=== PATIENT | male | born 1955 | race Caucasian/White ===

== ENCOUNTER 2016-04-11 09:32 | Outpatient (CLI) | payer OTHER | END 2016-04-11 09:33 | disposition home or self-care (01) | DX: E11.9 Type 2 diabetes mellitus without complications (principal) ==

== ENCOUNTER 2016-05-09 09:44 | Outpatient (CLI) | payer OTHER | END 2016-05-09 09:45 | disposition home or self-care (01) | DX: E11.9 Type 2 diabetes mellitus without complications (principal); E80.6 Other disorders of bilirubin metabolism ==

== ENCOUNTER 2016-07-31 07:16 | Outpatient (CLI) | payer OTHER ==
[2016-07-31 12:00] LABS: HEMOGLOBIN A1C 0.82 g/dL
[2016-07-31 12:09] LABS: BILIRUBIN,TOTAL 2.5 mg/dL (0.2-1.0); BUN - BLOOD UREA NITROGEN 17 mg/dL (6-20); CALCIUM 8.7 mg/dL (8.5-10.3); CARBON DIOXIDE - CO2 20 mmol/L (21-32); CHLORIDE 111 mmol/L (101-111); CHOL/HDL RATIO 4.9 (<5.0); CHOLESTEROL 209 mg/dL; CREATININE 0.7 mg/dL (0.6-1.2); GFR - MDRD 115 (>89); GLUCOSE 162 mg/dL (70-100); HDL CHOLESTEROL 43 mg/dL; LDL/HDL RATIO 3.3 (<3.6); POTASSIUM 3.9 mmol/L (3.5-5.0); SODIUM 139 mmol/L (135-145); TOTAL PROTEIN 6.8 g/dL (6.7-8.2); TRIGLYCERIDES 109 mg/dL; VLDL CHOLESTEROL 22 mg/dL
== END 2016-07-31 07:17 | disposition home or self-care (01) ==
LOC: LAB.F 07:16
PROVIDERS: ATTEND Nurse Practitioner Family
DX: E11.9 Type 2 diabetes mellitus without complications (principal)
CPT/HCPCS: 36415; 80053; 80061; 83036

== ENCOUNTER 2016-08-23 08:00 | Outpatient (CLI) | payer OTHER | END 2016-08-23 23:59 | disposition home or self-care (01) | LOC: LAB.R 08:00 | PROVIDERS: ATTEND Nurse Practitioner Family | DX: R31.9 Hematuria, unspecified (principal) | CPT/HCPCS: 87086 ==

== ENCOUNTER 2016-08-29 09:22 | Outpatient (CLI) | payer OTHER ==
--- NOTE | 2016-08-30 08:57 | XRAY Report ---
ONE-VIEW ABDOMEN: 08/29/2016 CLINICAL HISTORY: Patient has history of a calculus in his kidney. COMPARISON: 07/12/2015 FINDINGS: A 1.2 cm calculus is noted in the lower pole calyx of the left kidney. The size of the ca lculus is very similar to its size on preceding exam dated 07/12/2015. Its shape appears slightly di fferent and its density appears intact. Right kidney once again demonstrates multiple small calculi in the lower pole of the right kidney. There are between ten to twelve small calculi measuring 0.1 c m each in diameter. The number of these calculi appear to be slightly increased as compared to prece ding exam. Multiple gallbladder calculi are also noted in the right upper quadrant of the abdomen. There are nu merous calculi within the gallbladder, most of which measure 0.7 cm in diameter. Spurring is noted in the lumbar spine at multiple levels. Also, some spurring is seen in the lower t horacic spine. Multiple phleboliths calcifications are noted in the pelvic soft tissues. IMPRESSION: 1. A 1.2 CM CALCULUS IS NOTED IN THE LOWER POLE CALYX LEFT KIDNEY. THE SIZE OF THE CALCULUS IS JACQUELINE LAR TO ITS SIZE ON PRECEDING EXAM DATED 07/12/2015. ITS SHAPE IS SLIGHTLY DIFFERENT AND IT SHOWS AN INCREASED DENSITY. 2. MULTIPLE TINY CALCULI ARE NOTED IN THE LOWER POLE CALYX OF THE RIGHT KIDNEY. THE NUMBER OF THESE CALCULI APPEARS SLIGHTLY INCREASED COMPARED TO PRECEDING EXAM. 3. CHOLELITHIASIS WITH NUMEROUS FAINTLY CALCIFIED CALCULI NOTED WITHIN THE GALLBLADDER. JOB #: [id number] EXT JOB #:[id number]
== END 2016-08-29 09:23 | disposition home or self-care (01) ==
LOC: DI 09:22
PROVIDERS: ATTEND Nurse Practitioner Family
DX: N20.0 Calculus of kidney (principal); K80.20 Calculus of gallbladder without cholecystitis without obstruction
CPT/HCPCS: 74000

== ENCOUNTER 2016-09-25 10:48 | Outpatient (CLI) | payer OTHER ==
[2016-09-25 18:47] LABS: BASOPHILS # (AUTO) 0.1 10^3/uL (0.0-0.1); BASOPHILS % (AUTO) 0.7 %; EOSINOPHILS # (AUTO) 0.4 10^3/uL (0.0-0.7); EOSINOPHILS % (AUTO) 4.3 %; HCT - HEMATOCRIT 47.4 % (42.0-52.0); HGB - HEMOGLOBIN 15.8 g/dL (14.0-18.0); LYMPHOCYTES # (AUTO) 2.6 10^3/uL (1.5-3.5); LYMPHOCYTES % (AUTO) 27.8 %; MEAN CORPUSCULAR HEMOGLOBIN 29.7 pg (27.0-31.0); MEAN CORPUSCULAR HGB CONC 33.3 g/dL (32.0-36.0); MEAN CORPUSCULAR VOLUME 89.3 fL (80.0-94.0); MEAN PLATELET VOLUME 7.6 fL (7.4-11.4); MONOCYTES # (AUTO) 0.8 10^3/uL (0.0-1.0); MONOCYTES % (AUTO) 8.1 %; NEUTROPHILS # (AUTO) 5.5 10^3/uL (1.5-6.6); NEUTROPHILS % (AUTO) 59.1 %; NUCLEATED RED BLOOD CELLS AUTO 0.1 /100WBC; RED BLOOD COUNT 5.31 10^6/uL (4.70-6.10); RED CELL DISTRIBUTION WIDTH 13.9 % (12.0-15.0); UNCORRECTED WHITE BLOOD COUNT 9.3 x10^3/uL; WHITE BLOOD COUNT 9.3 x10^3/uL (4.8-10.8)
[2016-09-25 18:57] LABS: BUN - BLOOD UREA NITROGEN 19 mg/dL (6-20); CALCIUM 9.3 mg/dL (8.5-10.3); CARBON DIOXIDE - CO2 23 mmol/L (21-32); CHLORIDE 107 mmol/L (101-111); CREATININE 0.7 mg/dL (0.6-1.2); GFR - MDRD 115 (>89); GLUCOSE 128 mg/dL (70-100); POTASSIUM 4.4 mmol/L (3.5-5.0); SODIUM 139 mmol/L (135-145)
== END 2016-09-25 10:49 | disposition home or self-care (01) ==
LOC: RT.S 10:48
PROVIDERS: ATTEND Nurse Practitioner Family
DX: I10 Essential (primary) hypertension (principal); E11.9 Type 2 diabetes mellitus without complications; R07.89 Other chest pain; R06.09 Other forms of dyspnea
CPT/HCPCS: 36415; 80048; 84443; 85025; 93005

== ENCOUNTER 2016-09-27 15:00 | Outpatient (CLI) | payer OTHER | END 2016-09-27 15:01 | disposition home or self-care (01) | LOC: RT.S 15:00 | PROVIDERS: ATTEND Nurse Practitioner Family | DX: I48.91 Unspecified atrial fibrillation (principal) | CPT/HCPCS: 93005 ==

== ENCOUNTER 2016-09-30 11:12 | Outpatient (CLI) | payer OTHER | END 2016-09-30 11:13 | disposition home or self-care (01) | LOC: DI 11:12 | PROVIDERS: ATTEND Nurse Practitioner Family | DX: I48.91 Unspecified atrial fibrillation (principal); I51.7 Cardiomegaly; I10 Essential (primary) hypertension; E78.5 Hyperlipidemia, unspecified; E11.9 Type 2 diabetes mellitus without complications; I34.0 Nonrheumatic mitral (valve) insufficiency | CPT/HCPCS: 93306 ==

== ENCOUNTER 2016-11-27 15:30 | Outpatient (CLI) | payer OTHER | END 2016-11-27 15:31 | disposition home or self-care (01) | LOC: RT.S 15:30 | PROVIDERS: ATTEND Internal Medicine Cardiovascular Disease | DX: I48.0 Paroxysmal atrial fibrillation (principal); R06.02 Shortness of breath | CPT/HCPCS: 93005 ==

== ENCOUNTER 2016-11-29 10:49 | Outpatient (CLI) | payer OTHER ==
[2016-11-29 17:44] LABS: BASOPHILS # (AUTO) 0.1 10^3/uL (0.0-0.1); BASOPHILS % (AUTO) 1.2 %; EOSINOPHILS # (AUTO) 0.3 10^3/uL (0.0-0.7); EOSINOPHILS % (AUTO) 3.6 %; HCT - HEMATOCRIT 47.3 % (42.0-52.0); HGB - HEMOGLOBIN 15.7 g/dL (14.0-18.0); LYMPHOCYTES # (AUTO) 2.2 10^3/uL (1.5-3.5); LYMPHOCYTES % (AUTO) 23.7 %; MEAN CORPUSCULAR HEMOGLOBIN 29.9 pg (27.0-31.0); MEAN CORPUSCULAR HGB CONC 33.3 g/dL (32.0-36.0); MEAN CORPUSCULAR VOLUME 89.9 fL (80.0-94.0); MEAN PLATELET VOLUME 8.2 fL (7.4-11.4); MONOCYTES # (AUTO) 0.9 10^3/uL (0.0-1.0); MONOCYTES % (AUTO) 9.6 %; NEUTROPHILS # (AUTO) 5.8 10^3/uL (1.5-6.6); NEUTROPHILS % (AUTO) 61.9 %; NUCLEATED RED BLOOD CELLS AUTO 0.2 /100WBC; RED BLOOD COUNT 5.26 10^6/uL (4.70-6.10); RED CELL DISTRIBUTION WIDTH 14.7 % (12.0-15.0); UNCORRECTED WHITE BLOOD COUNT 9.3 x10^3/uL; WHITE BLOOD COUNT 9.3 x10^3/uL (4.8-10.8)
[2016-11-29 18:17] LABS: ALBUMIN/GLOBULIN RATIO 1.8 (1.0-2.2); BILIRUBIN,TOTAL 2.8 mg/dL (0.2-1.0); CALCIUM 9.4 mg/dL (8.5-10.3); POTASSIUM 4.2 mmol/L (3.5-5.0); TOTAL PROTEIN 6.4 g/dL (6.7-8.2)
[2016-11-29 18:18] LABS: HEMOGLOBIN A1C 0.82 g/dL
== END 2016-11-29 10:50 | disposition home or self-care (01) ==
LOC: LAB.F 10:49
PROVIDERS: ATTEND Nurse Practitioner Family
DX: I10 Essential (primary) hypertension (principal); E11.9 Type 2 diabetes mellitus without complications; I48.91 Unspecified atrial fibrillation; D72.829 Elevated white blood cell count, unspecified
CPT/HCPCS: 36415; 80053; 83036; 83880; 85025

== ENCOUNTER 2016-12-22 15:22 | Outpatient (CLI) | payer OTHER | END 2016-12-22 15:23 | disposition home or self-care (01) | LOC: RT.S 15:22 | PROVIDERS: ATTEND Internal Medicine Cardiovascular Disease | DX: I48.91 Unspecified atrial fibrillation (principal) | CPT/HCPCS: 93005 ==

== ENCOUNTER 2016-12-26 07:28 | Outpatient (CLI) | payer OTHER ==
--- NOTE | 2016-12-26 12:32 | Ultrasound Report ---
RIGHT UPPER QUADRANT ULTRASOUND: 12/26/2016 CLINICAL INDICATION: Abnormal bilirubin. TECHNIQUE: Real-time scanning was performed with manufacturers service representative static images obtained. FINDINGS: The liver measures 18 cm. Hepatic echogenicity is normal. No intrahepatic biliary dilata tion or focal parenchymal lesion is seen. The common bile duct measures 5 mm. Multiple gallstones a re seen in an otherwise unremarkable gallbladder. The right kidney measures 12.3 cm, and demonstrate s a nonobstructing stone in the lower pole. No free fluid is present. IMPRESSION: CHOLELITHIASIS. NO EVIDENCE OF BILIARY OBSTRUCTION. RIGHT NEPHROLITHIASIS, WITHOUT HYD RONEPHROSIS. JOB #: [id number] EXT JOB #:[id number]
== END 2016-12-26 07:29 | disposition home or self-care (01) ==
LOC: DI 07:28
PROVIDERS: ATTEND Nurse Practitioner Family
DX: K80.20 Calculus of gallbladder without cholecystitis without obstruction (principal); N20.0 Calculus of kidney
CPT/HCPCS: 76705

== ENCOUNTER 2017-01-04 13:31 | Outpatient (CLI) | payer OTHER ==
[2017-01-04 18:26] LABS: CALCIUM 8.9 mg/dL (8.5-10.3); CREATININE 0.9 mg/dL (0.6-1.2); POTASSIUM 3.3 mmol/L (3.5-5.0)
== END 2017-01-04 13:32 | disposition home or self-care (01) ==
LOC: LAB.F 13:31
PROVIDERS: ATTEND Internal Medicine Cardiovascular Disease
DX: I50.22 Chronic systolic (congestive) heart failure (principal); I48.91 Unspecified atrial fibrillation; I48.1 Persistent atrial fibrillation
CPT/HCPCS: 36415; 80048

== ENCOUNTER 2017-02-26 07:39 | Outpatient (CLI) | payer OTHER ==
[2017-02-26 12:22] LABS: ALBUMIN/GLOBULIN RATIO 1.3 (1.0-2.2); BILIRUBIN,TOTAL 1.1 mg/dL (0.2-1.0); BUN - BLOOD UREA NITROGEN 15 mg/dL (6-20); CALCIUM 8.9 mg/dL (8.5-10.3); CARBON DIOXIDE - CO2 26 mmol/L (21-32); CHLORIDE 104 mmol/L (101-111); CHOL/HDL RATIO 4.7 (<5.0); CHOLESTEROL 248 mg/dL; CREATININE 0.8 mg/dL (0.6-1.2); GFR - MDRD 99 (>89); GLUCOSE 104 mg/dL (70-100); HDL CHOLESTEROL 53 mg/dL; LDL/HDL RATIO 3.3 (<3.6); POTASSIUM 4.1 mmol/L (3.5-5.0); SODIUM 139 mmol/L (135-145); TOTAL PROTEIN 6.6 g/dL (6.7-8.2); TRIGLYCERIDES 101 mg/dL; VLDL CHOLESTEROL 20 mg/dL
[2017-02-26 12:26] LABS: HEMOGLOBIN A1C 0.63 g/dL
== END 2017-02-26 07:40 | disposition home or self-care (01) ==
LOC: LAB.F 07:39
PROVIDERS: ATTEND Nurse Practitioner Family
DX: E11.9 Type 2 diabetes mellitus without complications (principal)
CPT/HCPCS: 36415; 80053; 80061; 82043; 83036

== ENCOUNTER 2017-06-04 08:14 | Outpatient (CLI) | payer OTHER | END 2017-06-04 08:15 | disposition home or self-care (01) | LOC: DI 08:14 | PROVIDERS: ATTEND Nurse Practitioner Family | DX: I50.9 Heart failure, unspecified (principal); I27.20 Pulmonary hypertension, unspecified | CPT/HCPCS: 93306 ==

== ENCOUNTER 2017-09-17 09:37 | Outpatient (CLI) | payer OTHER ==
[2017-09-17 17:35] LABS: CALCIUM 8.8 mg/dL (8.5-10.3); CREATININE 0.7 mg/dL (0.6-1.2)
[2017-09-17 19:05] LABS: HEMOGLOBIN A1C 0.71 g/dL; HEMOGLOBIN A1C % 6.5 % (4.6-6.2)
== END 2017-09-17 09:38 | disposition home or self-care (01) ==
LOC: LAB.S 09:37
PROVIDERS: ATTEND Nurse Practitioner Family
DX: E11.9 Type 2 diabetes mellitus without complications (principal)
CPT/HCPCS: 36415; 80048; 83036

== ENCOUNTER 2018-02-08 13:40 | Outpatient (CLI) | payer OTHER ==
--- NOTE | 2018-02-08 15:29 | XRAY Report ---
Reason: BILAT FOOT PAIN Procedure Date: 02/08/2018 Accession Number: [id number] / [id number] Procedure: XR - Foot 3 View BILAT CPT Code: FULL RESULT: EXAMS: 1. Right Foot Radiography 2. Left Foot Radiography EXAM DATE: 02/08/2018 02:07 PM. CLINICAL HISTORY: Bilateral foot pain. COMPARISON: None. TECHNIQUE: 3 views each foot. FINDINGS: Right: Bones: Mild inferior calcaneal spurring. No fractures or bone lesions. Joints: Normal. No subluxations. Soft Tissues: Normal. No soft tissue swelling. Left: Bones: Mild inferior calcaneal spurring. No fractures or bone lesions. Joints: Normal. No subluxations. Soft Tissues: Normal. No soft tissue swelling. IMPRESSION: Inferior calcaneal spurring bilaterally. RADIA
== END 2018-02-08 13:41 | disposition home or self-care (01) ==
LOC: DI 13:40
PROVIDERS: ATTEND Podiatrist
DX: M77.32 Calcaneal spur, left foot (principal); M77.31 Calcaneal spur, right foot

== ENCOUNTER 2018-04-29 07:56 | Outpatient (CLI) | payer OTHER ==
[2018-04-29 10:31] LABS: BASOPHILS # (AUTO) 0.1 10^3/uL (0.0-0.1); BASOPHILS % (AUTO) 1.6 %; EOSINOPHILS # (AUTO) 0.4 10^3/uL (0.0-0.7); EOSINOPHILS % (AUTO) 6.7 %; HGB - HEMOGLOBIN 13.8 g/dL (14.0-18.0); LYMPHOCYTES # (AUTO) 1.6 10^3/uL (1.5-3.5); MEAN CORPUSCULAR HEMOGLOBIN 30.9 pg (27.0-31.0); MEAN CORPUSCULAR HGB CONC 34.8 g/dL (32.0-36.0); MEAN CORPUSCULAR VOLUME 88.9 fL (80.0-94.0); MEAN PLATELET VOLUME 7.1 fL (7.4-11.4); MONOCYTES # (AUTO) 0.5 10^3/uL (0.0-1.0); MONOCYTES % (AUTO) 8.9 %; NEUTROPHILS # (AUTO) 3.2 10^3/uL (1.5-6.6); NEUTROPHILS % (AUTO) 54.8 %; PLT - PLATELET COUNT 216 10^3/uL (130-450); RED BLOOD COUNT 4.47 10^6/uL (4.70-6.10); RED CELL DISTRIBUTION WIDTH 13.8 % (12.0-15.0); WHITE BLOOD COUNT 5.9 x10^3/uL (4.8-10.8)
[2018-04-29 11:15] LABS: ALBUMIN 4.1 g/dL (3.2-5.5); ALBUMIN/GLOBULIN RATIO 1.5 (1.0-2.2); ALKALINE PHOSPHATASE 38 IU/L (42-121); ALT ALANINE AMINOTRANSFERASE 40 IU/L (10-60); AST ASPARTATE AMINOTRANSFERASE 32 IU/L (10-42); BILIRUBIN,TOTAL 1.3 mg/dL (0.2-1.0); BUN - BLOOD UREA NITROGEN 19 mg/dL (6-20); CALCIUM 8.7 mg/dL (8.5-10.3); CARBON DIOXIDE - CO2 22 mmol/L (21-32); CHLORIDE 106 mmol/L (101-111); CHOL/HDL RATIO 4.5 (<5.0); CHOLESTEROL 225 mg/dL; CREATININE 0.7 mg/dL (0.6-1.2); GFR - MDRD 115 (>89); GLUCOSE 188 mg/dL (70-100); HDL CHOLESTEROL 50 mg/dL; LDL CHOLESTEROL,CALCULATED 133 mg/dL; LDL/HDL RATIO 2.7 (<3.6); SODIUM 137 mmol/L (135-145); TOTAL PROTEIN 6.8 g/dL (6.7-8.2); VLDL CHOLESTEROL 42 mg/dL
[2018-04-29 11:26] LABS: HB2 TOTAL 14.8 g/dL; HEMOGLOBIN A1C 0.89 g/dL; HEMOGLOBIN A1C % 7.7 % (4.6-6.2)
== END 2018-04-29 07:57 | disposition home or self-care (01) ==
LOC: LAB.F 07:56
PROVIDERS: ATTEND Nurse Practitioner Family
DX: I10 Essential (primary) hypertension (principal); I48.91 Unspecified atrial fibrillation; E11.9 Type 2 diabetes mellitus without complications
CPT/HCPCS: 36415; 80053; 80061; 82043; 83036; 83721; 84443; 85025

== ENCOUNTER 2018-08-19 07:10 | Outpatient (CLI) | payer OTHER ==
[2018-08-19 10:32] LABS: ALBUMIN 3.9 g/dL (3.2-5.5); ALKALINE PHOSPHATASE 62 IU/L (42-121); ALT ALANINE AMINOTRANSFERASE 37 IU/L (10-60); AST ASPARTATE AMINOTRANSFERASE 26 IU/L (10-42); BILIRUBIN,DIRECT 0.1 mg/dL (0.1-0.5); BILIRUBIN,TOTAL 1.3 mg/dL (0.2-1.0); CHOL/HDL RATIO 3.5 (<5.0); CHOLESTEROL 148 mg/dL; HDL CHOLESTEROL 42 mg/dL; LDL CHOLESTEROL,CALCULATED 64 mg/dL; LDL/HDL RATIO 1.5 (<3.6); TOTAL PROTEIN 6.9 g/dL (6.7-8.2); VLDL CHOLESTEROL 42 mg/dL
[2018-08-19 10:36] LABS: HEMOGLOBIN A1C 0.98 g/dL; HEMOGLOBIN A1C % 8.1 % (4.6-6.2)
== END 2018-08-19 07:11 | disposition home or self-care (01) ==
LOC: LAB.F 07:10
PROVIDERS: ATTEND Registered Nurse
DX: E11.9 Type 2 diabetes mellitus without complications (principal); E78.5 Hyperlipidemia, unspecified
CPT/HCPCS: 36415; 80061; 80076; 83036; 83721

== ENCOUNTER 2018-12-30 07:26 | Outpatient (CLI) | payer OTHER ==
[2018-12-30 10:06] LABS: CALCIUM 8.8 mg/dL (8.5-10.3); CREATININE 0.8 mg/dL (0.6-1.2)
[2018-12-30 10:15] LABS: CREATININE,URINE 118.3 mg/dL; MICROALBUM/CREATININE RATIO,UR 13.5 ug/mg (<30.0); MICROALBUMIN,URINE 1.6 mg/dL (0-300.0)
[2018-12-30 10:24] LABS: HB2 TOTAL 15.3 g/dL; HEMOGLOBIN A1C 0.87 g/dL; HEMOGLOBIN A1C % 7.4 % (4.6-6.2)
== END 2018-12-30 07:27 | disposition home or self-care (01) ==
LOC: LAB.S 07:26
PROVIDERS: ATTEND Registered Nurse
DX: E11.51 Type 2 diabetes mellitus with diabetic peripheral angiopathy without gangrene (principal)
CPT/HCPCS: 36415; 80048; 82043; 82570; 83036

== ENCOUNTER 2019-04-22 07:21 | Outpatient (CLI) | payer OTHER ==
[2019-04-22 10:30] LABS: CALCIUM 8.4 mg/dL (8.5-10.3); CREATININE 0.7 mg/dL (0.6-1.2)
[2019-04-22 10:43] LABS: HB2 TOTAL 15.8 g/dL; HEMOGLOBIN A1C 1.06 g/dL; HEMOGLOBIN A1C % 8.3 % (4.6-6.2)
== END 2019-04-22 07:22 | disposition home or self-care (01) ==
LOC: LAB.S 07:21
PROVIDERS: ATTEND Internal Medicine Cardiovascular Disease
DX: E11.9 Type 2 diabetes mellitus without complications (principal); Z79.899 Other long term (current) drug therapy
CPT/HCPCS: 36415; 80048; 83036; 84443

== ENCOUNTER 2023-04-07 05:19 | Outpatient (CLI) | payer MEDICARE | END 2023-04-07 05:20 | disposition left against medical advice (07) | LOC: EMS 05:19 | DX: R47.9 Unspecified speech disturbances (principal) ==

== ENCOUNTER 2023-04-07 06:53 | Emergency (ER) | payer MEDICARE, OTHER ==
--- NOTE | 2023-04-07 07:00 | ED Physician Documentation ---
PD HPI FOCAL NEURO - Stated complaint Stated Complaint: SLURRED SPEECH - History obtained from History obtained from: Patient - History of Present Illness Timing - onset: Yesterday Timing - duration: Seconds (30-60 seconds) Timing - details: Abrupt onset, Now resolved Severity of deficit: Moderate (unable to talk clearly for) Weakness: No: Face, Hand, Foot Numbness: No: Face, Hand, Foot Associated symptoms: Headache (intermittent and mild for couple of weeks on right side. No associated symptoms with that.). No: Nausea / vomiting Contributing factors: positive: Atrial fibrillation (history of it, but not curenlty in fib.). negative: Anticoagulated Similar symptoms before: Has not had sx before Review of Systems Constitutional: denies: Fever, Chills Nose: denies: Rhinorrhea / runny nose, Congestion Throat: denies: Sore throat Respiratory: denies: Cough GI: denies: Abdominal Pain, Nausea, Vomiting, Diarrhea Skin: denies: Rash, Lesions Neurologic: reports: Difficulty speaking (just last evening and today), Headache. denies: Focal weakness, Numbness, Altered mental status, Head injury PD PAST MEDICAL HISTORY - Past Medical History Cardiovascular: Hypertension Respiratory: Other Endocrine/Autoimmune: Type 2 diabetes GI: None : Kidney stones HEENT: Other Psych: None Musculoskeletal: Osteoarthritis Derm: Other - Past Surgical History Past Surgical History: Yes General: Appendectomy Ortho: Other HEENT: Tonsil/Adenoidectomy - Present Medications Home Medications: Ambulatory Orders Medication Instructions Recorded Confirmed Amiodarone HCl 200 mg PO BID 04/07/23 04/07/23 Atorvastatin [Lipitor] 20 mg PO QPM 04/07/23 04/07/23 Dabigatran Etexilate Mesylate 150 mg PO BID 10 Days #20 cap 04/07/23 [Pradaxa] Furosemide [Lasix] 40 mg PO DAILY 04/07/23 04/07/23 Glipizide [Glipizide Xl] 10 mg PO BID #20 tab 04/07/23 Metformin HCl 1,000 mg PO BID #20 tab 04/07/23 Metoprolol Succinate 200 mg PO BID 04/07/23 04/07/23 Metoprolol Succinate [Toprol Xl] 50 mg PO DAILY 20 Days #20 tablet 04/07/23 Potassium Chloride 20 meq PO DAILY 04/07/23 04/07/23 diltiaZEM CD [Cardizem Cd] 120 mg PO DAILY 04/07/23 04/07/23 - Allergies Allergies/Adverse Reactions: Allergies Allergy/AdvReac Type Severity Reaction Status Date / Time acetaminophen [From Vicodin] AdvReac Severe Hives/Nause Verified 04/07/23 07:13 a hydrocodone bitartrate * AdvReac Severe Hives/Nause Verified 04/07/23 07:13 [From Vicodin] a Phosphorus Allergy Intermediate Possible Uncoded 04/07/23 07:13 Allergy- Rash/hives - Social History Does the pt smoke?: No Smoking Status: Never smoker Does the pt drink ETOH?: No Does the pt have substance abuse?: No - Immunizations Immunizations are current?: Yes - POLST Patient has POLST: No PD ED PE NORMAL - Vitals Vital signs reviewed: Yes - General General: Alert and oriented X 3, No acute distress, Well developed/nourished - Neck Neck: Supple, no meningeal sign, No adenopathy, No bruit - Cardiac Cardiac: RRR, No murmur - Respiratory Respiratory: No respiratory distress, Clear bilaterally - Abdomen Abdomen: Soft, Non tender - Derm Derm: Normal color, Warm and dry - Neuro Neuro: Alert and oriented X 3, head of ict 2-12 intact, No motor deficit, No sensory deficit, Normal speech Eye Opening: Spontaneous Motor: Obeys Commands Verbal: Oriented GCS Score: 15 NIHSS - Level of Consciousness Level of consciousness: (0) Alert, Keenly responsive LOC Questions: (0) Answers both Q's correct LOC Commands: (0) Performs both correctly - Gaze Best Gaze: (0) Normal - Visual Visual: (0) No loss - Facial Palsy Facial Palsy: (0) Normal, symmetrical movement - Motor Arms (both separate) Motor Arm (right): (0) No drift Motor Arm (left): (0) No drift - Motor Legs (both separate) Motor Leg (right): (0) No drift Motor Leg (left): (0) No drift - Limb Ataxia Limb Ataxia: (0) Absent - Sensory Sensory: (0) Normal - Best Language Best Language: (0) No aphasia - Dysarthria Dysarthria: (0) Normal - Extinction and Inattention (formally neg Extinction and inattention: (0) No abnormality - Total Score/Results Total Score/Result: 0 Results - Vitals Vitals: Vital Signs - 24 hr 04/07/23 04/07/23 04/07/23 07:05 07:45 08:30 Temperature 36.0 C L Heart Rate 85 82 85 Respiratory 16 14 16 Rate Blood Pressure 155/110 H 129/89 H 115/80 O2 Saturation 95 95 94 04/07/23 04/07/23 04/07/23 09:50 10:00 10:30 Temperature Heart Rate 78 82 82 Respiratory 15 17 17 Rate Blood Pressure 110/78 115/75 112/81 H O2 Saturation 94 95 94 04/07/23 04/07/23 04/07/23 11:00 12:04 13:02 Temperature 36.1 C L Heart Rate 81 82 88 Respiratory 15 16 16 Rate Blood Pressure 113/80 116/76 112/80 O2 Saturation 94 98 95 04/07/23 13:48 Temperature 36.2 C L Heart Rate 80 Respiratory 16 Rate Blood Pressure 111/75 O2 Saturation 98 Oxygen O2 Source Room air - EKG (time done) 07:18 EKG releavant findings:: EKG personally interpreted by author of this note. Relevant findings are: Rate: Rate (enter#) (73) Rhythm: NSR [place]: Normal Intervals: Normal [place] QRS: Normal Ischemia: Normal ST segments. No: ST elevation c/w ischemia, ST depression Compare to prior EKG: Old EKG unavailable - Labs Labs: Laboratory Tests 04/07/23 04/07/23 04/07/23 07:01 07:04 07:04 WBC 7.4 RBC 5.49 Hgb 16.9 Hct 49.0 MCV 89.3 MCH 30.8 MCHC 34.5 RDW 12.6 Plt Count 254 MPV 9.3 Neut # (Auto) 4.5 Lymph # (Auto) 1.7 Bucks # (Auto) 0.7 Eos # (Auto) 0.3 Baso # (Auto) 0.1 Absolute Nucleated RBC 0.00 Nucleated RBC % 0.0 ESR Sodium 135 Potassium 4.0 Chloride 102 Carbon Dioxide 25 Anion Gap 8.0 BUN 28 H Creatinine 0.9 Estimated GFR (MDRD) 85 L Glucose 296 H POC Whole Bld Glucose 325 H Estimat Average Glucose Hemoglobin A1c % Calcium 9.7 Magnesium 1.9 Total Bilirubin 1.8 H AST 13 ALT 18 Alkaline Phosphatase 115 Total Protein 7.6 Albumin 4.7 Globulin 2.9 Albumin/Globulin Ratio 1.6 Lipase 68 TSH 2.58 04/07/23 04/07/23 04/07/23 07:04 07:04 11:52 WBC RBC Hgb Hct MCV MCH MCHC RDW Plt Count MPV Neut # (Auto) Lymph # (Auto) [place] # (Auto) Eos # (Auto) Baso # (Auto) Absolute Nucleated RBC Nucleated RBC % ESR 3 Sodium Potassium Chloride Carbon Dioxide Anion Gap BUN Creatinine Estimated GFR (MDRD) Glucose POC Whole Bld Glucose 104 H Estimat Average Glucose 240 H Hemoglobin A1c % 10.0 H Calcium Magnesium Total Bilirubin AST ALT Alkaline Phosphatase Total Protein Albumin Globulin Albumin/Globulin Ratio Lipase TSH - Rads (name of study) CT stoke potocol Relevant Findings:: Prelim report reviewed, Discussed with rads (no acute pocess), EMP independent interpretation of test CT head/neck angio Relevant Findings:: Prelim report reviewed (no significant stenoses) brain MRI Relevant Findings:: Prelim report reviewed, EMP independent interpretation of test (Focus of left lateral lobe restricted diffusion consistent with acute/subacute stroke.) PD Medical Decision Making - ED course Complexity details: reviewed results, re-evaluated patient (Still without symptoms here. ), considered differential, d/w patient, d/w outside solar sales consultant (Stroke neurology Dr. Mckeon consulted. He interviewed the patient and looked at the findings. Recommendation was for resuming anticoagulant. Likely TIA versus hyperglycemia or other other cognitive effect rather than ischemic. He did recommend MRI and then patient could be discharged with Rx. ) ED course: The patient was resolved of symptoms on arrival here to the ER. He states that 3 episodes or only about 30 seconds to a minute in duration each. He has had some headache for a couple of weeks on the right side. This has been intermittent. He does have a history of atrial fibrillation in the past as well as diabetes, hypertension, high cholesterol. His insurance changed with a job change several months ago and he stopped his medications due to noncoverage. He had been on beta-caiyt, cholesterol medicine, Pradaxa, metformin, glipizide. He had the aphasic episodes as noted above. He recovered back to baseline. Here his blood sugar was noticed to be in the high 300s. He was sent for CT and CT angiogram. I did talk with stroke neurology soon after his arrival. The neurologist Dr. Mckeon did talk with the patient and interview him. He remained without any symptoms here. The neurologist feeling was the symptoms might relate to just hyperglycemia and some trouble speaking. However suggested to get an MRI. We do have this available. This gave an opportunity for us to watch the patient for symptoms as well as on the monitor he remained in sinus rhythm without any problems. He his was with him talking frequently so there would have been an opportunity to notice any aphasia. He did have the MRI which did show a subacute stroke. In the conversation with the neurologist earlier, the recommendation was to resume the anticoagulant given the concern for underlying episodes of A-fib. We did not have any of the Pradaxa here so was given initial dose of Lovenox. He states he does have some at home that he will resume and I wrote a prescription for more. He is searching for a new primary care provider [place] It was recommended he also have dual treatment initially with aspirin for a few weeks. The patient was discharged in stable condition with the adequate stroke workup- felt to be done and the patient without symptoms at this time. I did not see need for physical therapy as his gait was good and good coordination with hand use etc. Departure - Departure Disposition: 01 Home, Self Care Clinical Impression: Aphasia, CVA (cerebral vascular accident), Headache Condition: Stable Record reviewed to determine appropriate education?: Yes Instructions: ED Stroke Completed Follow-Up: Primary[facility]Walk In [place] [Provider Group] [facility] [place] [Provider Group] Marleny Ruiz ARNP [Provider Admit Priv/Credential] - Prescriptions: Glipizide [Glipizide Xl] 10 mg PO BID #20 tab Metformin HCl 1,000 mg PO BID #20 tab Dabigatran Etexilate Mesylate [Pradaxa] 150 mg PO BID 10 Days #20 cap Metoprolol Succinate [Toprol Xl] 50 mg PO DAILY 20 Days #20 tablet Comments: You did have a small stroke leading to your symptoms. You may expect some trouble with speaking on and off briefly. Recheck if consistent or worsening or associated with other weaknesses or significantly worse headache. I did involve a stroke neurologist that you talked with while here in the ER via telemedicine. Suggestion was for you to be back on your Pradaxa. I wrote a prescription for that for the short-term until you are able to realign with insurances and new provider. You can also follow-up with the walk-in clinic if you are running out before that gets arranged. In addition you should take a baby aspirin daily for the next 3 weeks. I wrote prescriptions for your metformin, metoprolol and glipizide for blood pressure, heart rate and blood sugar improvement. Continue with these. Stay well-hydrated. I sent your prescriptions to the [facility] pharmacy in [place]. Forms: PCP List Discharge Date/Time: 04/07/23 13:55
[2023-04-07] MEDS ORDERED: iohexoL-300 100 ML VIAL ONE (07:02)
[2023-04-07] MEDS ORDERED: SODIUM CHLORIDE 0.9% 1,000 ML IV STA (07:12)
[2023-04-07 07:27] LABS: BASOPHILS # (AUTO) 0.1 10^3/uL (0.0-0.1); BASOPHILS % (AUTO) 1.4 %; EOSINOPHILS # (AUTO) 0.3 10^3/uL (0.0-0.7); EOSINOPHILS % (AUTO) 4.2 %; HGB - HEMOGLOBIN 16.9 g/dL (14.0-18.0); LYMPHOCYTES # (AUTO) 1.7 10^3/uL (1.5-3.5); MEAN CORPUSCULAR HEMOGLOBIN 30.8 pg (27.0-31.0); MEAN CORPUSCULAR HGB CONC 34.5 g/dL (32.0-36.0); MEAN CORPUSCULAR VOLUME 89.3 fL (80.0-94.0); MEAN PLATELET VOLUME 9.3 fL (7.4-11.4); MONOCYTES # (AUTO) 0.7 10^3/uL (0.0-1.0); MONOCYTES % (AUTO) 9.5 %; NEUTROPHILS # (AUTO) 4.5 10^3/uL (1.5-6.6); NEUTROPHILS % (AUTO) 61.2 %; PLT - PLATELET COUNT 254 10^3/uL (130-450); RED BLOOD COUNT 5.49 10^6/uL (4.70-6.10); RED CELL DISTRIBUTION WIDTH 12.6 % (12.0-15.0); WHITE BLOOD COUNT 7.4 x10^3/uL (4.8-10.8)
[2023-04-07 07:34] LABS: ALBUMIN 4.7 g/dL (3.2-5.5); ALBUMIN/GLOBULIN RATIO 1.6 (1.0-2.2); BILIRUBIN,TOTAL 1.8 mg/dL (0.2-1.0); CALCIUM 9.7 mg/dL (8.5-10.3); CREATININE 0.9 mg/dL (0.6-1.3); MAGNESIUM 1.9 mg/dL (1.7-2.3); TOTAL PROTEIN 7.6 g/dL (6.4-8.9)
[2023-04-07] MEDS ORDERED: iohexoL-300 100 ML VIAL IVP ONE (07:42)
[2023-04-07 07:45] LABS: THYROID STIMULATING HORMONE 2.58 uIU/mL (0.34-5.60)
--- NOTE | 2023-04-07 08:28 | CT Report ---
PROCEDURE: Head W/O Stroke Protocol INDICATIONS: aphasia briefly yest and today x3 TECHNIQUE: Noncontrast 4.5 mm thick angled axial sections acquired from the foramen magnum to the vertex, with c oronal reformats. For radiation dose reduction, the following was used: automated exposure control, adjustment of mA and/or kV according to patient size. COMPARISON: CTA head and neck 04/07/2023 FINDINGS: Image quality: Excellent. CSF spaces: Basal cisterns are patent. No extra-axial fluid collections. Ventricles are normal in size and shape. Brain: No midline shift. No intracranial masses or hemorrhage. Tim-white matter interface is norm al. Skull and face: Calvarium and visualized facial bones are intact, without suspicious lesions. Sinuses: Visualized sinuses demonstrate prominent sinus mucosal thickening particularly in the maxil pamela sinuses. IMPRESSION: 1. No acute intracranial process. The above findings are concordant with preliminary report. This study fulfills neurological imaging criteria for inclusion or exclusion of acute stroke therapie s based on available published neurological imaging guidelines. Reviewed by: Whitley Evans MD on 04/07/2023 8:27 AM PST Approved by: Whitley Evans MD on 04/07/2023 8:27 AM PST Station ID: [id number]
[2023-04-07] MEDS ORDERED: ASPIRIN CHEW 81 MG TABLET PO STA (08:30)
[2023-04-07] MEDS ORDERED: metFORMIN 500 MG TABLET PO STA (08:31)
--- NOTE | 2023-04-07 08:33 | CT Report ---
PROCEDURE: Angio Head/Neck INDICATIONS: brief aphasia x 3 yest/today TECHNIQUE: After the administration of intravenous contrast, 1 mm thick sections acquired from the aortic arch t hrough the [place]. 3-dimensional phzkwme-ylqntahsh-aflkqfaygb (MIP) and/or volume renderin g reformats were acquired of the central intracranial vasculature and neck separately. For radiation dose reduction, the following was used: automated exposure control, adjustment of mA and/or kV acco rding to patient size. COMPARISON: CT head 04/07/2023 FINDINGS: Image quality: Diagnostic. HEAD CT: Please see separately dictated CT head report of 04/07/[address] ANGIOGRAPHY: Anterior circulation: Intracranial internal carotid arteries are normal in size and flow. The flow within the paired anterior cerebral arteries is normal and symmetric. The flow within the middle cer ebral arteries is normal and symmetric. The anterior communicating artery is seen. No aneurysms are seen. Posterior circulation: Mild left vertebral artery dominance. Visualized portions of the vertebral ar teries demonstrate normal caliber, and join to form a normal appearing basilar artery. Flow within t he posterior cerebral arteries is normal and symmetric. No aneurysms are seen. origin of the posterior cerebral arteries is present consistent with congenital variation. NECK CT ANGIOGRAPHY: Carotid system: The great vessels demonstrate a conventional anatomy as they arise from the aortic a rch. The origins of the common carotid arteries appear patent. The common carotid arteries demonstr ate normal caliber and courses. The bifurcation regions are both widely patent. There is less than 50% stenosis at the origin of the left internal carotid artery. Posterior circulation: The origins of the vertebral arteries both appear widely patent. The more santana perior extracranial portions of both vertebral arteries also demonstrate normal courses and calibers. They join to form a normal appearing basilar artery. Soft tissues: Visualized neck soft tissues demonstrate no suspicious abnormalities. Low-attenuation thyroid foci are present the largest is present in the right lobe measuring 9 mm. No priors. Bones: No suspicious bony lesions. Visualized cervical spine appears normally aligned. IMPRESSION: Less than 50% stenosis at the origin of the left internal carotid artery. The above findings are concordant with preliminary report. The estimate of stenosis included in the report of the imaging study was calculated using the NASCET method Reviewed by: Whitley Evans MD on 04/07/2023 8:32 AM PST Approved by: Whitley Evans MD on 04/07/2023 8:32 AM PST Station ID: [id number]
[2023-04-07] MEDS: diltiaZEM CD 120 MG CAPSULE PO STA ×2 (08:42→08:43)
[2023-04-07] MEDS ORDERED: ENOXAPARIN 100 MG/ML SYRINGE SUBQ STA (09:33)
[2023-04-07 09:35] LABS: ESTIMATED AVERAGE GLUCOSE 240 mg/dL (70-100)
--- NOTE | 2023-04-07 12:06 | MRI Report ---
PROCEDURE: Brain WO INDICATIONS: TIA episodes TECHNIQUE: Noncontrast axial T1 spin echo, axial T2 fast spin echo, sagittal and axial FLAIR, coronal T2 fast sp in echo, axial gradient echo, axial diffusion and ADC through the brain. COMPARISON: CT head, CTA head and neck 04/07/2023. FINDINGS: Image quality: Excellent. CSF Spaces: Basal cisterns are patent. No extra-axial fluid collections. Ventricles are normal in size and shape. Brain: No intracranial masses or hemorrhage. Tim/white matter interface is normal. Brainstem appe ars normal. Diffusion-weighted images demonstrate a small focus of peripheral left upper lobe hyperi ntensity demonstrating hypointense ADC signal. A punctate focus of hyperintense diffusion signal is p resent in the anterior right frontal lobe with cortical ADC signal. It demonstrates hyperintense T2/F LAIR signal.. No chronic ischemic insults. Normal intravascular flow voids are present. Skull and face: Calvarium has normal marrow signal. Orbits appear normal. Sinuses: Sinuses demonstrate diffuse pansinus mucosal thickening most prominent in the maxillary sin uses.. IMPRESSION: Focus of peripheral left lateral lobe restricted diffusion with hypointense ADC most consistent with acute/subacute ischemia. Punctate focus of hyperintensity within the right frontal lobe indeterminant for late subacute ischem ia versus T2 shine through. Reviewed by: Whitley Evans MD on 04/07/2023 12:04 PM PST Approved by: Whitley Evans MD on 04/07/2023 12:04 PM PST Station ID: [id number]
[2023-04-07 13:55] VITALS: BP 111/75; O2SAT 98
== END 2023-04-07 13:55 | disposition home or self-care (01) ==
LOC: ED 06:53
DX: I63.9 Cerebral infarction, unspecified (principal); R47.01 Aphasia; I10 Essential (primary) hypertension; R51.9 Headache, unspecified; I48.91 Unspecified atrial fibrillation; E11.9 Type 2 diabetes mellitus without complications; Z79.84 Long term (current) use of oral hypoglycemic drugs; R29.700 NIHSS score 0
CPT/HCPCS: 36415; 70450; 70496; 70498; 70551; 80053; 83036; 83690; 83735; 84443; 85025; 85651; 93005; 96372; 99284; A9270; J1650; Q9967

== ENCOUNTER 2023-05-22 07:38 | Outpatient (CLI) | payer MEDICARE ==
[2023-05-22 15:20] LABS: BASOPHILS # (AUTO) 0.1 10^3/uL (0.0-0.1); BASOPHILS % (AUTO) 1.6 %; EOSINOPHILS # (AUTO) 0.6 10^3/uL (0.0-0.7); EOSINOPHILS % (AUTO) 7.6 %; HCT - HEMATOCRIT 45.9 % (42.0-52.0); HGB - HEMOGLOBIN 14.8 g/dL (14.0-18.0); LYMPHOCYTES # (AUTO) 1.8 10^3/uL (1.5-3.5); LYMPHOCYTES % (AUTO) 22.8 %; MEAN CORPUSCULAR HEMOGLOBIN 30.5 pg (27.0-31.0); MEAN CORPUSCULAR HGB CONC 32.2 g/dL (32.0-36.0); MEAN CORPUSCULAR VOLUME 94.4 fL (80.0-94.0); MEAN PLATELET VOLUME 9.2 fL (7.4-11.4); MONOCYTES # (AUTO) 0.7 10^3/uL (0.0-1.0); MONOCYTES % (AUTO) 9.1 %; NEUTROPHILS # (AUTO) 4.6 10^3/uL (1.5-6.6); NEUTROPHILS % (AUTO) 58.4 %; PLT - PLATELET COUNT 270 10^3/uL (130-450); RED BLOOD COUNT 4.86 10^6/uL (4.70-6.10); RED CELL DISTRIBUTION WIDTH 14.2 % (12.0-15.0); WHITE BLOOD COUNT 7.9 x10^3/uL (4.8-10.8)
[2023-05-22 15:46] LABS: BILIRUBIN,URINE NEGATIVE (NEGATIVE); GLUCOSE, URINE (UA) NEGATIVE (NEGATIVE); KETONES,URINE (UA) NEGATIVE (NEGATIVE); LEUKOCYTE ESTERASE, URINE NEGATIVE (NEGATIVE); NITRITE,URINE NEGATIVE (NEGATIVE); OCCULT BLOOD,URINE LARGE (NEGATIVE); PH,URINE 5.5 PH (5.0-7.5); PROTEIN,URINE 30 mg/dL (NEGATIVE); UROBILINOGEN,URINE 0.2 (NORMAL) E.U./dL (NORMAL)
[2023-05-22 16:15] LABS: CLARITY,URINE CLOUDY (CLEAR); WBC,URINE 0-3 /HPF (0-3)
[2023-05-22 16:16] LABS: AMORPHOUS SEDIMENT,UR Marked /LPF; BACTERIA,URINE Rare /HPF (None Seen); RBC,URINE TNTC /HPF (0-5); SQUAMOUS EPITHELIAL CELL,UR NONE SEEN (<= Few)
[2023-05-22 16:43] LABS: ESTIMATED AVERAGE GLUCOSE 154 mg/dL (70-100); THYROID STIMULATING HORMONE 3.35 uIU/mL (0.34-5.60)
[2023-05-22 16:55] LABS: ALBUMIN 4.4 g/dL (3.2-5.5); ALBUMIN/GLOBULIN RATIO 1.8 (1.0-2.2); ALKALINE PHOSPHATASE 70 IU/L (42-121); ALT ALANINE AMINOTRANSFERASE 25 IU/L (10-60); AST ASPARTATE AMINOTRANSFERASE 20 IU/L (10-42); BILIRUBIN,TOTAL 1.6 mg/dL (0.2-1.0); BUN - BLOOD UREA NITROGEN 28 mg/dL (6-20); CALCIUM 9.3 mg/dL (8.5-10.3); CARBON DIOXIDE - CO2 25 mmol/L (21-32); CHLORIDE 108 mmol/L (101-111); CHOL/HDL RATIO 2.4 (<5.0); CHOLESTEROL 128 mg/dL; CREATININE 0.9 mg/dL (0.6-1.3); GFR - MDRD 84 (>89); GLUCOSE 184 mg/dL (74-104); HDL CHOLESTEROL 53 mg/dL; LDL CHOLESTEROL,CALCULATED 61 mg/dL; LDL/HDL RATIO 1.2 (<3.6); POTASSIUM 4.2 mmol/L (3.5-4.5); SODIUM 139 mmol/L (135-145); TOTAL PROTEIN 6.8 g/dL (6.4-8.9); TRIGLYCERIDES 69 mg/dL (48-352); VLDL CHOLESTEROL 14 mg/dL
== END 2023-05-22 07:39 | disposition home or self-care (01) ==
LOC: LAB.S 07:38
PROVIDERS: ATTEND Physician Assistant Medical
DX: Z00.00 Encounter for general adult medical examination without abnormal findings (principal); E78.5 Hyperlipidemia, unspecified; R31.9 Hematuria, unspecified; Z87.442 Personal history of urinary calculi; Z12.5 Encounter for screening for malignant neoplasm of prostate; E11.59 Type 2 diabetes mellitus with other circulatory complications
CPT/HCPCS: 36415; 80053; 80061; 81001; 83036; 84443; 85025; G0103; 83721; 84153; 87086

== ENCOUNTER 2023-06-19 15:14 | Outpatient (CLI) | payer MEDICARE ==
[2023-06-19] MEDS ORDERED: iohexoL-300 100 ML VIAL ONE (15:39)
[2023-06-19] MEDS ORDERED: iohexoL-300 150 ML BOTTLE ONE (15:54)
[2023-06-19] MEDS: iohexoL-300 150 ML BOTTLE IVP ONE (16:10)
--- NOTE | 2023-06-19 17:17 | CT Report ---
PROCEDURE: IVP INDICATIONS: HEMATURIA CONTRAST: oMNIPAQUE 300 140ML TECHNIQUE: A [address] of the abdomen and pelvis was performed. Non-contrast and contrast images were recorded and evaluated at appropriate window settings. Images were recorded and evaluated at appropriate windo w settings. Reformats: coronal and sagittal. For radiation dose reduction, the following was used: au tomated exposure control, adjustment of convex left scoliosis. 3 interval casting with improved align ment at the tibia and fibula fractures. MA and/or kV according to patient size. COMPARISON: None. FINDINGS: Image quality: Diagnostic. OTHER Lower chest: Unremarkable. Liver: No solid mass. Subcentimeter hypodensities which are too small to characterize. Gallbladder and biliary tree: The gallbladder is filled with gallstones. No gallbladder wall thickeni ng or inflammation is seen. Spleen: No splenomegaly. Pancreas: No pancreatic ductal dilation. Adrenals: Left adrenal nodule measuring 1.4 cm and -20 Hounsfield units, most consistent with an adre nal adenoma. Kidneys and ureters: Both kidneys are normal in size. Punctate right renal calcifications which are n onobstructing. Nonobstructing left renal stones and calcifications with the largest at the inferior p ole measuring 1.5 x 1.2 cm. Some within the right mid to distal ureter measuring 6 mm which results i n at most mild hydroureter. No hydronephrosis. No solid masses or complex cysts which require follow up. The opacified renal calyces and ureters appear normal, without filling defect. Stomach, bowel and peritoneum: No bowel distension. No pathologic free fluid. Diverticulosis without evidence of diverticulitis. Prior appendectomy. Abdominal Lymph nodes: No central or retroperitoneal adenopathy. Vessels: Atherosclerotic vascular calcifications. Reproductive organs: Unremarkable. Bladder: No abnormal wall thickening, accounting for underdistention. Several calcified stones within the bladder dependently with the largest measuring 1.4 x 1.0 cm.. No filling defect within the opaci fied bladder. Pelvic Lymph nodes: Unremarkable. Bones: No aggressive osseous abnormality. Other: Small bilateral fat-containing inguinal hernias. IMPRESSION: 1.Bilateral nonobstructing renal stones with the largest at the inferior pole of the left kidney shazia uring 1.5 cm. 2.Stone within the mid to distal right ureter measuring 6 mm which results in at most mild hydrourete r. 3.No filling defects are seen within the opacified collecting systems. 4.Calcified bladder stones measuring up to 1.4 cm. 5.The gallbladder is filled with gallstones without evidence of inflammation. 6.Left adrenal nodule measuring 1.4 cm which is most consistent with an adrenal adenoma. 7.Diverticulosis without evidence of acute diverticulitis. Reviewed by: Minh Garcia MD on 06/19/2023 5:15 PM PDT Approved by: Mihn Garcia MD on 06/19/2023 5:15 PM PDT Station ID: [id number]
== END 2023-06-19 15:15 | disposition home or self-care (01) ==
LOC: DI 15:14
PROVIDERS: ATTEND Physician Assistant Medical
DX: N13.2 Hydronephrosis with renal and ureteral calculous obstruction (principal); N21.0 Calculus in bladder; K80.20 Calculus of gallbladder without cholecystitis without obstruction; E27.9 Disorder of adrenal gland, unspecified; K57.90 Diverticulosis of intestine, part unspecified, without perforation or abscess without bleeding; R31.9 Hematuria, unspecified

== ENCOUNTER 2023-10-08 08:04 | Outpatient (CLI) | payer MEDICARE ==
[2023-10-08 15:24] LABS: ESTIMATED AVERAGE GLUCOSE 151 mg/dL (70-100); HEMOGLOBIN A1c% 6.9 % (4.27-6.07)
[2023-10-08 15:31] LABS: CALCIUM 9.2 mg/dL (8.5-10.3); CREATININE 0.8 mg/dL (0.6-1.3)
[2023-10-08 15:49] LABS: CREATININE,URINE 66.4 mg/dL; MICROALBUM/CREATININE RATIO,UR 373.5 ug/mg (<30.0); MICROALBUMIN,URINE 24.8 mg/dL
== END 2023-10-08 08:05 | disposition home or self-care (01) ==
LOC: LAB.S 08:04
PROVIDERS: ATTEND Physician Assistant Medical
DX: E11.9 Type 2 diabetes mellitus without complications (principal)
CPT/HCPCS: 36415; 80048; 82043; 82570; 83036

== ENCOUNTER 2023-10-26 08:00 | Outpatient (CLI) | payer MEDICARE | END 2023-10-26 23:59 | disposition home or self-care (01) | LOC: LAB 08:00 | PROVIDERS: ATTEND Urology | DX: N39.0 Urinary tract infection, site not specified (principal); R31.9 Hematuria, unspecified | CPT/HCPCS: 87086; 87181 ==